=== PATIENT | female | born 1955 | race Caucasian/White ===

== ENCOUNTER 2018-01-19 03:35 | Emergency (ER) | payer BC, MEDICARE ==
[2018-01-19] MEDS: ORPHENADRINE CITRATE 60 MG/2 ML VIAL. IM (04:13)
[2018-01-19] MEDS: KETOROLAC 60 MG/2 ML INJ. IM (04:14)
[2018-01-19] MEDS: ONDANSETRON ODT 4 MG TAB.RAPDIS. PO (04:33)
== END 2018-01-19 04:45 | disposition home or self-care (01) ==
LOC: ER 03:35
DX: S13.4XXA Sprain of ligaments of cervical spine, initial encounter (principal); M54.6 Pain in thoracic spine; I10 Essential (primary) hypertension; G89.29 Other chronic pain; F41.9 Anxiety disorder, unspecified; F32.9 Major depressive disorder, single episode, unspecified; Z96.653 Presence of artificial knee joint, bilateral; Z88.5 Allergy status to narcotic agent; X58.XXXA Exposure to other specified factors, initial encounter; Y93.89 Activity, other specified; Y99.8 Other external cause status; Y92.89 Other specified places as the place of occurrence of the external cause
CPT/HCPCS: 96372; 99284; J1885; J2360; Q0162